=== PATIENT | male | born 1985 | race Caucasian/White ===

== ENCOUNTER 2018-12-28 15:40 | Emergency (ER) | payer OTHER ==
[~2018-12-28] VITALS: Ht 182.9 cm; Wt 101.9 kg
--- NOTE | 2018-12-28 16:33 | REP ---
Left wrist two views : There is no fracture or dislocation. Mineralization and joint spaces are normal. There are no calcifications or foreign bodies. Impression: Negative left wrist . Electronically Signed by Trav Duke MD 12/28/2018 04:24 P
--- NOTE | 2018-12-28 16:34 | REP ---
Left knee five view : There is no fracture or dislocation. Mineralization and joint spaces are normal. There are no calcifications or foreign bodies. Impression: Negative left knee . Electronically Signed by Trav Duke MD 12/28/2018 04:25 P
[2018-12-28 18:04] VITALS: BP 140/65
== END 2018-12-28 18:07 | disposition home or self-care (01) ==
LOC: M ED 15:40
DX: Z04.1 Encounter for examination and observation following transport accident (principal); S63.502A Unspecified sprain of left wrist, initial encounter; S80.02XA Contusion of left knee, initial encounter; V23.4XXA Motorcycle driver injured in collision with car, pick-up truck or van in traffic accident, initial encounter